=== PATIENT | male | born 1960 | race Caucasian/White ===

== ENCOUNTER 2020-12-01 17:50 | Emergency (ER) | payer OTHER ==
[~2020-12-01 17:50] MED LIST: ASPIRIN EC81 MG PO
[2020-12-01 19:35] LABS: HEMOGLOBIN 13.6 gm/dl (14.0-17.5); RED BLOOD COUNT 5.55 M/UL (4.20-5.50); WHITE BLOOD COUNT 14.8 K/UL (4.5-11.0)
[2020-12-01 19:57] LABS: BUN/CREATININE RATIO 19 (0-10)
[2020-12-03 06:10] LABS: RPR Non Reactive (Non Reactive)
== END 2020-12-02 01:00 | disposition short-term general hospital (02) ==
LOC: ER1 17:50
PROVIDERS: Physician Assistant
DX: R41.82 Altered mental status, unspecified (principal); I48.91 Unspecified atrial fibrillation; Z20.822 Contact with and (suspected) exposure to COVID-19
CPT/HCPCS: 70450; 71045; 80053; 82140; 82550; 82553; 83735; 83874; 84100; 84439; 84443; 84484; 85025; 86592; 87040; 93005; 99285; U0002